=== PATIENT | female | born 1960 | race Caucasian/White ===

== ENCOUNTER 2018-11-21 15:15 | Emergency (ER) | payer BC ==
[2018-11-21] MEDS ORDERED: Sodium Chloride 0.9% 1,000 ML IV ONE (15:39)
[2018-11-21] MEDS ORDERED: Sodium Chloride 0.9% 10 ML Syringe FLUSH PRN (15:39)
[2018-11-21] MEDS ORDERED: Ondansetron 4 MG/2 ML SDV IVPUSH ONE (15:45)
--- NOTE | 2018-11-21 15:45 | EDM.PDOC ---
ED HPI GENERAL MEDICAL PROBLEM - General Chief Complaint: Abdominal Pain Stated Complaint: ABDOMINAL PAIN Time Seen by Provider: 11/21/18 15:29 Source of Information: Reports: Patient History Limitations: Reports: No Limitations - History of Present Illness INITIAL COMMENTS - FREE TEXT/NARRATIVE: Patient is a 58-year-old female presents the ED today complaining of periumbilical abdominal pain that radiates into her suprapubic region. This started a few days ago with waxing and wanin in intensity. Pain is worsen with ambulation and also with palpation. Slightly decreases with lying down rated a 5 out of 10 currently. States last week grandsons and daughter are both sick with diarrhea, vomiting, and also some constipation. She states her last bowel movement was at 7:30 this morning normal pattern with no straining required. Approximate 9:00 she attempted to have a bowel movement and felt the need to have a bowel movement but was only able to produce a small blood clot. She states was bright red. She has no hemorrhoids or pain to her rectal region. She states with having a bowel movement she doubled over because of the pain to the lower abdomen. She was evaluated by her PCP today with concerns of patient possibly having diverticulitis. Lab work was obtained including a CBC chem 14 and also UA. White blood cell count was elevated at 14.9 with normal hemoglobin and platelet count. Neutrophil percent is 72.4 with neutrophil #10.8. A UA was negative. Chem 14 indicated creatinine 78. Sodium and potassium were normal. CO2 28. AG 14. LFTs within normal limits. She has a history of diverticulitis. She denies any recent fever, ingestion of battery questionable food, recent antibiotic use, history of C. difficile, drinking of unclean water, shortness breath, chest pain, dysuria, dizziness, or any additional complaints. Abdomen Pain Score (Numeric/FACES): 5 - Related Data Allergies Allergy/AdvReac Type Severity Reaction Status Date / Time No Known Allergies Allergy Verified 11/21/18 15:24 Home Meds: Home Meds Fluticasone/Vilanterol [Breo Ellipta 100-25 MCG Inhalation Kit] 1 puff INH DAILY 11/21/18 [History] Levofloxacin [Levaquin] 750 mg PO QAM #9 tablet 11/21/18 [Rx] Ondansetron [Zofran ODT] 4 mg PO Q6H PRN #15 tab.dis 11/21/18 [Rx] metroNIDAZOLE [Flagyl] 500 mg PO Q8H #30 tab 11/21/18 [Rx] ED ROS GENERAL - Review of Systems Review Of Systems: ROS reveals no pertinent complaints other than HPI. ED EXAM, GI/ABD - Physical Exam Exam: See Below Exam Limited By: No Limitations General Appearance: Alert, WD/WN, No Apparent Distress Ears: Hearing Grossly Normal Nose: Normal Inspection Throat/Mouth: Normal Inspection, Normal Lips, Normal Oropharynx, Normal Voice, No Airway Compromise Head: Atraumatic, Normocephalic Neck: Normal Inspection, Supple Respiratory/Chest: No Respiratory Distress, Lungs Clear, Normal Breath Sounds, No Accessory Muscle Use, Chest Non-Tender Cardiovascular: Normal Peripheral Pulses, Regular Rate, Rhythm, No Murmur GI/Abdominal Exam: Normal Bowel Sounds, Soft, No Organomegaly, No Distention, Abnormal Bowel Sounds (hyperactive) Back Exam: Normal Inspection. No: CVA Tenderness (L), CVA Tenderness (R) Extremities: Normal Inspection Neurological: Alert, Oriented, CN II-XII Intact, Normal Cognition, No Motor/ Sensory Deficits Psychiatric: Normal Affect, Normal Mood Skin Exam: Warm, Dry, Normal Color Course - Vital Signs Last Recorded V/S: Last Vital Signs Temp 98.3 F 11/21/18 18:35 Pulse 81 11/21/18 18:35 Resp 20 11/21/18 18:35 BP 104/54 L 11/21/18 18:35 Pulse Ox 97 11/21/18 18:35 - Orders/Labs/Meds Orders: Active Orders 24 hr Category Date Time Status Peripheral IV Care [RC] . DIRECTED Care 11/21/18 15:39 Active Abdomen Pelvis w Cont [CT] Stat Exams 11/21/18 15:39 Taken CULTURE STOOL + SHIGATOX [RM] Stat Lab 11/21/18 17:00 Received Peripheral IV Insertion Adult [OM.PC] Routine Oth 11/21/18 15:39 Ordered Labs: Laboratory Tests 11/21/18 Range/Units 15:50 C-Reactive Protein 6.5 H* (<1.0) mg/dL Lipase 72 L (73-393) U/L Meds: Medications Discontinued Medications Generic Name Dose Route Start Last Admin Trade Name Freq PRN Reason Stop Dose Admin Diatrizoate Meglum/Diatrizoate Sod 90 ml 11/21/18 15:47 11/21/18 17:05 Gastrografin 37% PO 11/21/18 15:48 90 ml ONETIME ONE Administration Diatrizoate Meglum/Diatrizoate Sod 90 ml 11/21/18 16:44 Gastrografin 37% PO 11/21/18 16:45 ONETIME ONE Sodium Chloride 1,000 mls @ 250 mls/hr 11/21/18 15:39 11/21/18 16:00 Normal Saline IV 11/21/18 19:38 250 mls/hr ONETIME ONE Administration Levofloxacin/Dextrose 750 mg/ 150 mls @ 100 mls/hr 11/21/18 18:00 Premix IV 11/21/18 19:29 ONETIME ONE Metronidazole 500 mg/ Premix 100 mls @ 100 mls/hr 11/21/18 18:02 IV 11/21/18 19:01 ONETIME ONE Iopamidol 100 ml 11/21/18 15:47 11/21/18 17:06 Isovue-300 (61%) IVPUSH 11/21/18 15:48 100 ml ONETIME ONE Administration Iopamidol 100 ml 11/21/18 16:44 Isovue-300 (61%) IVPUSH 11/21/18 16:45 ONETIME ONE Levofloxacin 750 mg 11/21/18 18:13 11/21/18 18:18 Levaquin PO 11/21/18 18:14 750 mg ONETIME ONE Administration Metronidazole 500 mg 11/21/18 18:13 11/21/18 18:18 Flagyl PO 11/21/18 18:14 500 mg ONETIME ONE Administration Ondansetron HCl 4 mg 11/21/18 15:45 11/21/18 16:01 Zofran IVPUSH 11/21/18 15:46 4 mg ONETIME ONE Administration Sodium Chloride 10 ml 11/21/18 15:39 11/21/18 17:07 Saline Flush FLUSH 10 ml ASDIRECTED PRN Administration Keep Vein Open Sodium Chloride 10 ml 11/21/18 15:47 Saline Flush FLUSH 11/21/18 15:48 ONETIME ONE - Re-Assessments/Exams Free Text/Narrative Re-Assessment/Exam: Labs obtained over the clinic include: CBC, chem 14, and UA. CBC indicated White blood cell count of 14.9, hemoglobin 14.0, platelet count 257, neutrophil percent is 72.4, neutrophil number is 10.8. UA was negative for infection. Chem 14 indicated normal creatinine 0.78. Sodium potassium within normal limits. AG was 12. IV will be established with an as. Will start the patient on oral contrast for CT of the abdomen and pelvis with IV and oral contrast to rule out diverticulitis. In addition patient has a bowel movement when you get a collection to test for stool wbc's and possible stool culture. I've offered to administer pain medications patient to which she has refused. She is not nauseated.I also ordered a CRP and lipase. I have ordered zofran 4mg IVP. 11/21/18 16:46 Lipase within normal limits. CRP is elevated at 6.5. 11/21/18 18:03 Stool WBCs are negative. 1803 Finally received results of CT study. Acute sigmoid diverticulitis. No evidence of perforation, drainable abscess, bowel obstruction or fistula. Based on up to date recommendations. Ordered levaquin 750mg IV and flagyl 500mg IV. 11/21/18 18:14 discuss results of the CT study and labs with the patient. Patient does not want to wait around for the IV antibiotics to be ran him. I ordered Levaquin 750 mg by mouth and Flagyl 500 mg by mouth. Return precautions and discussed with the patient. She agrees with plan. She refuses any pain medications on discharge. Departure - Departure Time of Disposition: 18:15 Disposition: Home, Self-Care 01 Condition: Good Clinical Impression: Diverticulitis - Discharge Information Prescriptions: Levofloxacin [Levaquin] 750 mg PO QAM #9 tablet metroNIDAZOLE [Flagyl] 500 mg PO Q8H #30 tab Ondansetron [Zofran ODT] 4 mg PO Q6H PRN #15 tab.dis PRN Reason: Nausea Instructions: Diverticulitis Referrals: Kell Lancaster NP [Primary Care Provider] - Forms: ED Department Discharge Additional Instructions: Take the levofloxacin and flagyl as prescribed. Take OTC Probiotic for the next 1 month. Suggest taking zofran for nausea. Stick with a clear liquid diet for the next 2 days. Thereafter advance to low residue diet. Followup with PCP in the next 3 to 5 days as needed. Return to the E.D. if you develop any new or worsening symptoms as discussed. - My Orders Last 24 Hours: My Active Orders 11/21/18 15:39 Peripheral IV Care [RC] . DIRECTED Abdomen Pelvis w Cont [CT] Stat Peripheral IV Insertion Adult [OM.PC] Routine 11/21/18 17:00 CULTURE STOOL + SHIGATOX [RM] Stat - Assessment/Plan Last 24 Hours: My Active Orders 11/21/18 15:39 Peripheral IV Care [RC] . DIRECTED Abdomen Pelvis w Cont [CT] Stat Peripheral IV Insertion Adult [OM.PC] Routine 11/21/18 17:00 CULTURE STOOL + SHIGATOX [RM] Stat
[2018-11-21] MEDS ORDERED: Sodium Chloride 0.9% 10 ML Syringe FLUSH ONE (15:47)
[2018-11-21] MEDS ORDERED: Diatrizoate Meglumine/Diatrizoate Sodium 37% 120 ML Bottle PO ONE ×2 (15:47→16:44)
[2018-11-21] MEDS ORDERED: Iopamidol 612 MG/ML 100 ML Bottle IVPUSH ONE ×2 (15:47→16:44)
[2018-11-21] MEDS ORDERED: Levofloxacin/Dextrose 5%-Water 750 MG in Premix Bag 1 BAG IV ONE (18:00)
[2018-11-21] MEDS ORDERED: metroNIDAZOLE/Normal Saline 500 MG in Premix Bag 1 BAG IV ONE (18:02)
[2018-11-21] MEDS ORDERED: metroNIDAZOLE 500 MG Tab PO ONE (18:13)
[2018-11-21] MEDS ORDERED: Levofloxacin 750 MG Tab PO ONE (18:13)
--- NOTE | 2018-11-22 09:52 | CT ---
CT abdomen and pelvis Technique: Multiple axial sections were obtained from above the dome of the diaphragm inferiorly through the pubic symphysis. Intravenous and oral contrast was utilized. Delayed images were also obtained through the bladder. Comparison: No prior CT abdomen or pelvis exam is available. Findings: Visualized lung bases show nothing acute. Liver contains no focal abnormality. Spleen appears within normal limits. Adrenal glands show no nodule. Pancreas is within normal limits. Gallbladder contains no calcified gallstones. Aorta shows atherosclerotic calcification without aneurysm. No retroperitoneal adenopathy or mesenteric abnormalities are seen. No pelvic mass or adenopathy is seen. Bowel wall thickening is seen within the sigmoid colon with mild surrounding inflammatory change. Diverticuli are seen in this area. Findings are felt compatible with mild diverticulitis and diverticulosis. Appendix is seen which is normal in size. No bowel dilatation is seen. No free fluid is seen. Delayed images show contrast within the bladder. Bone window settings were reviewed which appear within normal limits for the patient's age. Impression: 1. Bowel wall thickening and diverticuli within the sigmoid colon compatible with diverticulosis. Inflammatory change also seen within this area compatible with mild diverticulitis. No fluid collections of abscess are seen. 2. Other normal findings as described above. Diagnostic code #3 I agree with preliminary report from [facility], finalized on 11/21/18, 6:56 PM Central Time
== END 2018-11-21 18:35 | disposition home or self-care (01) ==
LOC: JD.ED 15:15
DX: K57.32 Diverticulitis of large intestine without perforation or abscess without bleeding (principal); Z79.899 Other long term (current) drug therapy; Z79.51 Long term (current) use of inhaled steroids
CPT/HCPCS: 36415; 74177; 83690; 86140; 87046; 89055; 96361; 96374; 99284; A9270; J2405; J7040; Q9963; Q9967; 87427

== ENCOUNTER 2019-01-17 16:33 | Emergency (ER) | payer BC ==
[2019-01-17] MEDS ORDERED: Sodium Chloride 0.9% 10 ML Syringe FLUSH PRN (17:15)
[2019-01-17] MEDS ORDERED: Sodium Chloride 0.9% 1,000 ML IV SCH (17:15)
--- NOTE | 2019-01-17 17:39 | EDM.PDOC ---
ED HPI GENERAL MEDICAL PROBLEM - General Chief Complaint: Abdominal Pain Stated Complaint: ABD PAIN Time Seen by Provider: 01/17/19 17:20 Source of Information: Reports: Patient History Limitations: Reports: No Limitations - History of Present Illness INITIAL COMMENTS - FREE TEXT/NARRATIVE: 58 year old female presents with c/o RLQ pain and suprapubic "burning". She was seen prior to this at [facility] and sent to ER for a work-up. She was recently treated for diverticulitis with abscess formation and subsequent C- diff. Her last dose of antibiotic treatment for this was last and she had been having regular, formed stools. On Wednesday01/13/19, she developed urinary symptoms and was started on Cipro for a UTI. She was doing well until today when she developed the RLQ pain and loose stools. She has had a total of 3 loose stools today and she states that the last stool was "very black". Prior to arrival she states that she was unable to void; however, she was able to had a large void and provide a urine specimen upon arrival to the ER. She states that her appetite and fluid intake have been good. No nausea, vomiting, fever, or chills. She denies a hx of GI bleeds. Right Lower Abdominal Pain Score (Numeric/FACES): 6 - Related Data Allergies Allergy/AdvReac Type Severity Reaction Status Date / Time No Known Allergies Allergy Verified 01/17/19 16:45 Home Meds: Home Meds Fluticasone/Vilanterol [Breo Ellipta 100-25 MCG Inhalation Kit] 1 puff INH DAILY 11/21/18 [History] Past Medical History HEENT History: Reports: Impaired Vision Other HEENT History: wears eyeglasses. 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 - Infectious Disease History Infectious Disease History: Reports: Chicken Pox, Measles, Mumps - Past Surgical History HEENT Surgical History: Reports: Tonsillectomy GI Surgical History: Reports: Colonoscopy, Polypectomy Female Surgical History: Reports: Section, Tubal Ligation Social & Family History - Caffeine Use Caffeine Use: Reports: Coffee ED ROS GENERAL - Review of Systems Review Of Systems: See Below Constitutional: Reports: No Symptoms. Denies: Fever, Chills, Decreased Appetite HEENT: Reports: No Symptoms Respiratory: Reports: No Symptoms Cardiovascular: Reports: No Symptoms Endocrine: Reports: No Symptoms GI/Abdominal: Reports: Abdominal Pain (RLQ tenderness), Black Stool, Diarrhea. Denies: Decreased Appetite, Nausea, Vomiting : Reports: Other (suprapubic "burning"). Denies: Dysuria, Flank Pain, Hematuria, Incontinence, Urgency Musculoskeletal: Reports: No Symptoms Skin: Reports: No Symptoms Neurological: Reports: No Symptoms Psychiatric: Reports: No Symptoms Hematologic/Lymphatic: Reports: No Symptoms Immunologic: Reports: No Symptoms ED EXAM, GI/ABD - Physical Exam Exam: See Below Exam Limited By: No Limitations General Appearance: Alert, WD/WN, No Apparent Distress Head: Atraumatic, Normocephalic Respiratory/Chest: No Respiratory Distress, Lungs Clear, Normal Breath Sounds Cardiovascular: Normal Peripheral Pulses, Regular Rate, Rhythm, No Edema GI/Abdominal Exam: Normal Bowel Sounds, No Organomegaly, Tender (RLQ tenderness) , Other. No: No Distention, Guarding, Rebound Rectal (Female) Exam: Normal Exam, Normal Rectal Tone, Heme - Stool, Other ( Small amount of loose, brown stool present in the rectal vault. ). No: Black Stool, Bloody Stool, Tenderness Back Exam: Normal Inspection. No: CVA Tenderness (L), CVA Tenderness (R) Neurological: Alert, Oriented, Normal Cognition, Normal Gait Psychiatric: Normal Affect, Normal Mood Skin Exam: Warm, Dry, Normal Color Course - Vital Signs Last Recorded V/S: Last Vital Signs Temp 96.9 F 01/17/19 16:42 Pulse 82 01/17/19 16:42 Resp 18 01/17/19 16:42 BP 132/56 L 01/17/19 16:42 Pulse Ox 94 L 01/17/19 16:42 - Orders/Labs/Meds Orders: Active Orders 24 hr Category Date Time Status Peripheral IV Care [RC] . DIRECTED Care 01/17/19 17:16 Active Abdomen 2V AP Flat Upright [CR] Stat Exams 01/17/19 17:16 Taken Sodium Chloride 0.9% [Normal Saline] 1,000 ml Med 01/17/19 17:15 Active IV ASDIRECTED Sodium Chloride 0.9% [Saline Flush] Med 01/17/19 17:15 Active 10 ml FLUSH ASDIRECTED PRN Peripheral IV Insertion Adult [OM.PC] Stat Oth 01/17/19 17:14 Ordered Medication Orders Sodium Chloride (Normal Saline) 1,000 mls @ 150 mls/hr IV ASDIRECTED REILLY Sodium Chloride (Saline Flush) 10 ml FLUSH ASDIRECTED PRN PRN Reason: Keep Vein Open Labs: Laboratory Tests 01/17/19 01/17/19 01/17/19 Range/Units 16:47 17:30 17:30 WBC 9.02 (3.98-10.04) K/mm3 RBC 4.06 (3.98-5.22) M/mm3 Hgb 13.2 (11.2-15.7) gm/dl Hct 39.4 (34.1-44.9) % MCV 97.0 H (79.4-94.8) fl MCH 32.5 H (25.6-32.2) pg MCHC 33.5 (32.2-35.5) g/dl RDW Std Deviation 48.7 H (36.4-46.3) fL Plt Count 300 (182-369) K/mm3 MPV 9.6 (9.4-12.3) fl Neut % (Auto) 44.6 (34.0-71.1) % Lymph % (Auto) 39.2 (19.3-51.7) % [place] % (Auto) 9.0 (4.7-12.5) % Eos % (Auto) 6.2 H (0.7-5.8) Baso % (Auto) 0.8 (0.1-1.2) % Neut # (Auto) 4.02 (1.56-6.13) K/mm3 Lymph # (Auto) 3.54 (1.18-3.74) K/mm3 [place] # (Auto) 0.81 H (0.24-0.36) K/mm3 Eos # (Auto) 0.56 H (0.04-0.36) K/mm3 Baso # (Auto) 0.07 (0.01-0.08) K/mm3 Sodium (136-145) mEq/L Potassium (3.5-5.1) mEq/L Chloride (98-107) mEq/L Carbon Dioxide (21-32) mEq/L Anion Gap (5-15) BUN (7-18) mg/dL Creatinine (0.55-1.02) mg/dL Est Cr Clr Drug Dosing Estimated GFR (MDRD) (>60) mL/min BUN/Creatinine Ratio (14-18) Glucose (74-106) mg/dL Calcium (8.5-10.1) mg/dL Total Bilirubin (0.2-1.0) mg/dL AST (15-37) U/L ALT (14-59) U/L Alkaline Phosphatase (46-116) U/L C-Reactive Protein < 0.2 (<1.0) mg/dL Total Protein (6.4-8.2) g/dl Albumin (3.4-5.0) g/dl Globulin gm/dL Albumin/Globulin Ratio (1-2) Urine Color Light yellow (Yellow) Urine Appearance Clear (Clear) Urine pH 7.0 (5.0-8.0) Ur Specific [place] 1.015 (1.005-1.030) Urine Protein Negative (Negative) Urine Glucose (UA) Negative (Negative) Urine Ketones Negative (Negative) Urine Occult Blood Negative (Negative) Urine Nitrite Negative (Negative) Urine Bilirubin Negative (Negative) Urine Urobilinogen 0.2 (0.2-1.0) Ur Leukocyte Esterase Trace H (Negative) Urine RBC 0-5 (0-5) /hpf Urine WBC 0-5 (0-5) /hpf Ur Squamous Epith Cells 0-5 (0-5) /hpf Urine Bacteria Few (FEW) /hpf Urine Mucus Not seen (FEW) /hpf 01/17/19 Range/Units 17:30 WBC (3.98-10.04) K/mm3 RBC (3.98-5.22) M/mm3 Hgb (11.2-15.7) gm/dl Hct (34.1-44.9) % MCV (79.4-94.8) fl MCH (25.6-32.2) pg MCHC (32.2-35.5) g/dl RDW Std Deviation (36.4-46.3) fL Plt Count (182-369) K/mm3 MPV (9.4-12.3) fl Neut % (Auto) (34.0-71.1) % Lymph % (Auto) (19.3-51.7) % [place] % (Auto) (4.7-12.5) % Eos % (Auto) (0.7-5.8) Baso % (Auto) (0.1-1.2) % Neut # (Auto) (1.56-6.13) K/mm3 Lymph # (Auto) (1.18-3.74) K/mm3 [place] # (Auto) (0.24-0.36) K/mm3 Eos # (Auto) (0.04-0.36) K/mm3 Baso # (Auto) (0.01-0.08) K/mm3 Sodium 140 (136-145) mEq/L Potassium 4.0 (3.5-5.1) mEq/L Chloride 105 (98-107) mEq/L Carbon Dioxide 28 (21-32) mEq/L Anion Gap 11.0 (5-15) BUN 14 (7-18) mg/dL Creatinine 0.8 (0.55-1.02) mg/dL Est Cr Clr Drug Dosing TNP Estimated GFR (MDRD) > 60 (>60) mL/min BUN/Creatinine Ratio 17.5 (14-18) Glucose 99 (74-106) mg/dL Calcium 9.3 (8.5-10.1) mg/dL Total Bilirubin 0.4 (0.2-1.0) mg/dL AST 19 (15-37) U/L ALT 33 (14-59) U/L Alkaline Phosphatase 66 (46-116) U/L C-Reactive Protein (<1.0) mg/dL Total Protein 7.0 (6.4-8.2) g/dl Albumin 3.5 (3.4-5.0) g/dl Globulin 3.5 gm/dL Albumin/Globulin Ratio 1.0 (1-2) Urine Color (Yellow) Urine Appearance (Clear) Urine pH (5.0-8.0) Ur Specific [place] (1.005-1.030) Urine Protein (Negative) Urine Glucose (UA) (Negative) Urine Ketones (Negative) Urine Occult Blood (Negative) Urine Nitrite (Negative) Urine Bilirubin (Negative) Urine Urobilinogen (0.2-1.0) Ur Leukocyte Esterase (Negative) Urine RBC (0-5) /hpf Urine WBC (0-5) /hpf Ur Squamous Epith Cells (0-5) /hpf Urine Bacteria (FEW) /hpf Urine Mucus (FEW) /hpf Meds: Medications Generic Name Dose Route Start Last Admin Trade Name Freq PRN Reason Stop Dose Admin Sodium Chloride 1,000 mls @ 150 mls/hr 01/17/19 17:15 Normal Saline IV ASDIRECTED REILLY Sodium Chloride 10 ml 01/17/19 17:15 Saline Flush FLUSH ASDIRECTED PRN Keep Vein Open - Re-Assessments/Exams Free Text/Narrative Re-Assessment/Exam: 01/17/19 18:45 Nurse informed me that the pt refused the IV and IVF stating that she isn't dehydrated. Urine is dilute and mucous membranes are moist. No IVF will be administered at this time. 01/17/19 18:17 Lab work was grossly unremarkable and improved since her labs were last checked at [facility] on 01/02/19. WBC today was 9.02 which is down from 15.2, Hgb is 13.2 down slightly from 14.1 but still normal, CRP was <0.2 which is down from 11.1, and urine is clear with the exception of trace leukocytes. Occult stool by rectal exam was negative. I will discharge pt home with instructions to complete her last dose of cipro tonight, continue her probiotics, and f/u with her PCP Wednesday or early next week. She was advised to return if the pain should worsen or if she has recurrent black or bloody stools. Departure - Departure Time of Disposition: 18:07 Disposition: Home, Self-Care 01 Condition: Fair Clinical Impression: Abdominal pain, Diarrhea - Discharge Information *PRESCRIPTION DRUG MONITORING PROGRAM REVIEWED*: Not Applicable *COPY OF PRESCRIPTION DRUG MONITORING REPORT IN PATIENT LARISA: Not Applicable Instructions: Abdominal Pain, Adult Referrals: Kell Lancaster NP [Primary Care Provider] - Forms: ED Department Discharge Additional Instructions: Stay well hydrated and continue bland diet. Finish your last dose of antibiotic tonight and continue to take your probiotic twice daily. Follow-up with your primary care provider Wednesday or early next week for a recheck. Return to ER for worsening pain, black or bloody stools, or any other concerning symptoms.
--- NOTE | 2019-01-18 06:51 | CR ---
Abdomen: Supine and upright views of the abdomen were obtained. Comparison: No prior abdominal x-ray, previous CT abdomen and pelvis study of 11/21/18. Bowel gas pattern is normal. No abnormal calcifications or soft tissue abnormality is seen. No free air is seen. Bony structures appear within normal limits for the patient's age. Impression: 1. Nothing acute is seen on two-view abdominal x-ray. Diagnostic code #1
== END 2019-01-17 18:21 | disposition home or self-care (01) ==
LOC: JD.ED 16:33
DX: R10.31 Right lower quadrant pain (principal); R19.7 Diarrhea, unspecified; J45.909 Unspecified asthma, uncomplicated; Z79.51 Long term (current) use of inhaled steroids
CPT/HCPCS: 36415; 74019; 74019-26; 80053; 81001; 85025; 86140; 99283; 99284-25